=== PATIENT | female | born 1985 | race Native Hawaiian/Other Pacific Islander ===

== ENCOUNTER 2017-05-08 17:32 | Emergency (ER) | payer SELFPAY ==
[2017-05-08] MEDS ORDERED: ZOFRAN IV ONE ×2 (19:33→21:55)
[2017-05-08] MEDS ORDERED: TORADOL IV ONE (19:45)
[2017-05-08] MEDS ORDERED: MORPHINE IV ONE (19:46)
[2017-05-08 20:08] LABS: Bilirubin,Urine NEG (Negative); Blood,Urine NEG (Negative); Ketones,Urine NEG (Negative); Leukocyte Esterase,Urine NEG (Negative); Nitrite,Urine NEG (Negative); Protein,Urine <15 mg/dL mg/dL (Negative); Urobilinogen,Urine < 2.0 mg/dL (<2.0)
[2017-05-08 20:16] LABS: Basophils % (Auto) 1.1 % (0.0-1.8); Eosinophils % (Auto) 0.2 % (0.0-4.3); Hematocrit 38.3 % (30.3-42.9); Hemoglobin 12.6 gm/dl (10.1-14.3); Mean Corpuscular HGB Conc 33 % (30-34); Mean Corpuscular Hemoglobin 30 pg (28-32); Mean Corpuscular Volume 92 fl (79-97); Platelet Count 240 K/mm3 (140-440); Red Blood Count 4.15 M/mm3 (3.65-5.03); Red Cell Distribution Width 13.9 % (13.2-15.2); White Blood Count 4.7 K/mm3 (4.5-11.0)
[2017-05-08] MEDS ORDERED: NACL ONE (20:19)
[2017-05-08 20:52] LABS: Alanine Aminotransferase 11 units/L (7-56); Albumin 4.6 g/dL (3.9-5); Albumin/Globulin Ratio 1.6 %; Alkaline Phosphatase 58 units/L (35-129); Anion Gap 19 mmol/L; BUN/Creatinine Ratio 15; Blood Urea Nitrogen 6 mg/dL (7-17); Calcium 8.9 mg/dL (8.4-10.2); Carbon Dioxide 23 mmol/L (22-30); Glucose 96 mg/dL (65-100); Potassium 3.6 mmol/L (3.6-5.0); Sodium 144 mmol/L (137-145); Total Protein 7.5 g/dL (6.3-8.2)
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
[2017-05-08] MEDS ORDERED: NACL 0.9% 1000 ML 1,000 ML IV ONE (21:55)
[2017-05-08] MEDS ORDERED: ZOFRAN ONE (21:59)
[2017-05-08] MEDS ORDERED: DILAUDID IV ONE (23:18)
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
[2017-05-08] MEDS ORDERED: PHENERGAN PR ONE (23:55)
[2017-05-09 00:09] VITALS: BP 108/72
== END 2017-05-09 00:30 | disposition home or self-care (01) ==
LOC: ED 17:32
DX: S16.1XXA Strain of muscle, fascia and tendon at neck level, initial encounter (principal); S30.1XXA Contusion of abdominal wall, initial encounter; S06.9X9A Unspecified intracranial injury with loss of consciousness of unspecified duration, initial encounter; G43.909 Migraine, unspecified, not intractable, without status migrainosus; Y04.8XXA Assault by other bodily force, initial encounter; Y93.89 Activity, other specified; Y92.89 Other specified places as the place of occurrence of the external cause; Y99.8 Other external cause status
CPT/HCPCS: 36415; 70450; 72125; 74177; 80053; 81001; 81025; 85025; 96361; 96374; 96375; 96376; 99284; J1170; J1885; J2270; J2405; J7030; Q9967